=== PATIENT | male | born 1980 | race Caucasian/White ===

== ENCOUNTER 2023-10-13 11:55 | Emergency (ER) | payer SELFPAY ==
[~2023-10-13] VITALS: Ht 188 cm; Wt 81.0 kg
[2023-10-13 12:12] VITALS: O2SAT 99
[2023-10-13] MEDS ORDERED: BENZ100C86 MT (15:19)
[2023-10-13] MEDS: ACETAMINOPHEN 325MG TABLET PO ONE (15:19)
[2023-10-13 15:46] VITALS: BP 135/64; PULSE 75; RESP 20; TEMP 98.4
== END 2023-10-13 15:45 | disposition home or self-care (01) ==
LOC: ER 11:55
DX: U07.1 COVID-19 (principal)
CPT/HCPCS: 87420; 87426; 87804; 99283